=== PATIENT | female | born 1950 | race Caucasian/White ===

== ENCOUNTER 2018-03-19 00:16 | Inpatient (IN) | payer OTHER ==
[2018-03-19] MEDS ORDERED: NS 0.9% 1000 ML** 1,000 ML IV.FLUID IV ONE (00:39)
[2018-03-19] MEDS ORDERED: Ibuprofen TAB* 400 MG PO ONE (00:42)
[2018-03-19] MEDS ORDERED: Acetaminophen TAB* 325 MG PO ONE (00:42)
[2018-03-19 01:01] LABS: ABS Basophils 0 10^3/ul (0-0.2); ABS Eosinophils 0 10^3/ul (0-0.6); ABS Lymphocytes 0.5 10^3/ul (1.0-4.8); ABS Monocytes 0.1 10^3/ul (0-0.8); ABS Neutrophils 4.6 10^3/ul (1.5-7.7); ABS Nucleated RBC 0 10^3/ul; Eosinophil % 0 %; Hematocrit 40 % (35-47); Hemoglobin 13.1 g/dl (12.0-16.0); Mean Corpuscular HGB Conc 33 g/dl (31-36); Mean Corpuscular Hemoglobin 29 pg (27-31); Mean Corpuscular Volume 87 fL (80-97); Mean Platelet Volume 8.7 fL (7.4-10.4); Nucleated Red Blood Cells % 0; Platelet Count 146 10^3/ul (150-450); Red Blood Count 4.54 10^6/ul (4.00-5.40); Red Cell Distribution Width 14 % (10.5-15); White Blood Count 5.2 10^3/ul (3.5-10.8)
--- NOTE | 2018-03-19 01:06 | ED ---
HPI Febrile Illness - HPI Summary HPI Summary: This pt is a 67 y/o female, accompanied by her PCP, presenting to [facility] via EMS c/o fever and myalgia since 6 days ago. Pt states that she vacationed for approximately 30 days in [place] and [place]. Pt notes that she started to have chills 6 days ago. 5 days ago pt took Tamiflu, prescribed by her PCP, without relief. PCP states pt was not positive for the flu and was being treated for her symptoms. Today, pt was shivering and decided to come to the ED. Per PCP, pt usually runs a fever during the night. Additionally pt notes myalgia. Denies nausea, vomiting, diarrhea, neck pain, abd pain, chest pain, SOB. No PMHx. - History of Current Complaint Hx Obtained From: Patient, Family/Patient Carrier - PCP Onset/Duration: Started Days Ago, Still Present Timing: Lasting Days Current Severity: Moderate Pain Intensity: 8 Pain Scale Used: 0-10 Numeric Aggravating Factors: Nothing Alleviating Factors: Nothing Associated Signs and Symptoms: Chills, Myalgia, Other: - NEG: nausea, vomiting, diarrhea, neck pain, abd pain, chest pain, SOB Related History: Exposure to: - recent return from [facility] on 02/28/18 - Allergy/Home Medications Allergies/Adverse Reactions: Allergies Allergy/AdvReac Type Severity Reaction Status Date / Time No Known Allergies Allergy Verified 03/19/18 00:47 Home Medications: Home Medications NK [No Home Medications Reported] 03/19/18 [History Confirmed 03/19/18] PMH/Surg Hx/FS Hx/Imm Hx Endocrine/Hematology History: Denies: Hx Diabetes Cardiovascular History: Denies: Hx Hypertension Infectious Disease History: No Infectious Disease History: Reports: Traveled Outside the [place] in Last 30 Days - [facility] - Family History Known Family History: Negative: Cardiac Disease - Social History Alcohol Use: None Substance Use Type: Reports: None Smoking Status (MU): Never Smoked Tobacco Review of Systems Positive: Fever, Chills Negative: Chest Pain Negative: Shortness Of Breath Negative: Abdominal Pain, Vomiting, Diarrhea, Nausea Positive: Myalgia. Negative: Other - NEG: neck pain All Other Systems Reviewed And Are Negative: Yes Physical Exam - Summary Physical Exam Summary: VITAL SIGNS: Reviewed. GENERAL: Patient is a well-developed and nourished female who is lying comfortable in the stretcher. Patient is not in any acute respiratory distress. HEAD AND FACE: No signs of trauma. No ecchymosis, hematomas or skull depressions. No sinus tenderness. EYES: PERRLA, EOMI x 2, No injected conjunctiva, no nystagmus. EARS: Hearing grossly intact. Ear canals and tympanic membranes are within normal limits. MOUTH: Oropharynx within normal limits. NECK: Supple, trachea is midline, no adenopathy, no JVD, no carotid bruit, no c- spine tenderness, neck with full ROM. CHEST: Symmetric, no tenderness at palpation LUNGS: Clear to auscultation bilaterally. No wheezing or crackles. CVS: Tachycardic rate and regular rhythm, S1 and S2 present, no murmurs or gallops appreciated. ABDOMEN: Soft, non-tender. No signs of distention. No rebound no guarding, and no masses palpated. Bowel sounds are normal. EXTREMITIES: FROM in all major joints, no edema, no cyanosis or clubbing. NEURO: Alert and oriented x 3. No acute neurological deficits. Speech is normal and follows commands. SKIN: Dry and warm Triage Information Reviewed: Yes Vital Signs On Initial Exam: Initial Vitals Pulse Pulse Ox 108 96 03/19/18 00:20 03/19/18 00:20 Vital Signs Reviewed: Yes Procedures - Procedure Summary Procedure Summary: Central Line Repositioned Procedure Note: Central line was repositioned. It was resutured Repeat chest XR shows the tip of the cental line is straight in the distal superior vena cava. - Central Line Right Jugular Central Line Lumen: triple Central Line Procedure: betadine prep, sterile drapes applied, sterile dressing applied Central Line Position: internal jugular (R) Anesthesia: Lidocaine Complications: none Central Line Post Position: sutured, good blood return, position confirmed w/ CXR Diagnostics - Vital Signs Vital Signs Temp Pulse Resp BP Pulse Ox 03/19/18 00:51 22 120/63 03/19/18 00:40 94 03/19/18 00:39 105.4 F 106 16 151/80 95 03/19/18 00:33 106 27 151/80 96 03/19/18 00:21 113 127/82 97 03/19/18 00:20 108 96 - Laboratory Result Diagrams: 03/19/18 00:48 03/19/18 00:48 Lab Statement: Any lab studies that have been ordered have been reviewed, and results considered in the medical decision making process. - Radiology Chest XR Radiology Interpretation Completed By: ED Physician Summary of Radiographic Findings: negative XR. Pending official radiology report. Chest XR post cental line placement Radiology Interpretation Completed By: ED Physician Summary of Radiographic Findings: The tip of the central line lumen makes transversed turn in the mid superior vena cava. Pending official radiology report. Chest XR after reposition Radiology Interpretation Completed By: ED Physician Summary of Radiographic Findings: Tip of central line is straight in the distal superior vena cava. Pending official radiology report. - CT Chest CT CT Interpretation Completed By: Radiologist Summary of CT Findings: IMPRESSION: 1. Subsegmental atelectasis, fibrosis, or minimal infiltrate in the right middle lobe. 2. Bibasilar linear atelectasis or fibrosis. Dr. Muller has reviewed this report. Abdomen/Pelvis CT CT Interpretation Completed By: Radiologist Summary of CT Findings: IMPRESSION: 1. Periportal edema. 2. Left renal cysts. 3. Low-density structure in the upper pole of the left kidney, more likely representing cyst but renal ultrasound is recommended for confirmation. 4. Fibroid uterus. 5. Borderline dilatation of the cecum. 6. Changes involving the spine, as described above. 7. Distended into vena cava, raising the posibility of decreased cardiac function. Dr. Muller has reviewed this report. - EKG 04:36 Cardiac Rate: NL - at 79 bpm EKG Rhythm: Sinus Rhythm Summary of EKG Findings: Normal axis. Normal interval. No ischemic changes Re-Evaluation - Re-Evaluation First Eval Re-Evaluation Time: 04:10 Comment: Central line was placed. Course/Dx - Course Assessment/Plan: Pt is a 67 y/o female, accompanied by her PCP, who presents to the ED for fever and myalgia since 6 days ago. Pt states that she vacationed for approximately 30 days in [place] and [place]. Pt notes that she started to have chills 6 days ago. 5 days ago pt took Tamiflu, prescribed by her PCP, without relief. PCP states pt was not positive for the flu and was being treated for her symptoms. Today, pt was shivering and decided to come to the ED. Blood work, urinalysis, influenza, rapid strep, and CT were obtained. Influenza A and B are both negative. Rapid strep is negative. Pt became hypotensive despite 3 liters of normal saline. Pt was in septic shock and pt consented to get pressors. We placed a central line in the right IJ. Please see procedure note. Norepinephrine was started. Chest XR post central line placement shows the tip of the central line lumen makes transversed turn in the mid superior vena cava. Central line was repositioned, please see procedure note. Repeat chest XR shows the tip of central line is straight in the distal superior vena cava. Pt was given broad spectrum antibiotic, Vancomycin. An abdomen/pelvis/chest CT was obtained, please refer to the report. I discussed pt care with Dr. Santos, hospitalist, who accepted the pt for admission. - Diagnoses Provider Diagnoses: Septic shock, UTI (urinary tract infection) - Provider Notifications Discussed Care Of Patient With: Whitney Santos - hospitalist Time Discussed With Above Provider: 03:03 Instructed by Provider To: Admit As Inpatient - Critical Care Time Critical Care Time: 30-74 min - 70 minutes Discharge - Sign-Out/Discharge Documenting (check all that apply): Patient [place]art[place] [facility] [place] Received Moderate/Deep Sedation with Procedure: No - Discharge Plan Condition: Stable Disposition: ADMITTED TO [facility] Referrals: Carol Salinas MD [Primary Care Provider] - - Attestation Statements Document Initiated by Scribe: Yes Documenting Scribe: Diana Rankin Provider For Whom Scribe is Documenting (Include Credential): Luz Muller MD Scribe Attestation: IDiana, scribed for Luz Muller MD on 03/19/18 at 0459. Status of Scribe Document: Ready
[2018-03-19 01:16] LABS: Activated Partial Thrombo Time 21.1 seconds (26.0-36.3); INR 1.14 (0.77-1.02)
[2018-03-19 01:17] LABS: Influenza A Molecular NEGATIVE (Negative); Influenza B Molecular NEGATIVE (Negative)
[2018-03-19 01:18] LABS: Albumin 3.9 g/dL (3.2-5.2); Albumin/Globulin Ratio 1.1 (1-3); BUN/Creatinine Ratio 17.1 (8-20); C Reactive Protein 95.39 mg/L (<8.01); Calcium 9.5 mg/dL (8.6-10.3); EGFR African American 63.6 (>60); EGFR Non-African American 52.6 (>60); Globulin 3.4 g/dL (2-4); Potassium 4.4 mmol/L (3.5-5.0); Total Bilirubin 0.5 mg/dL (0.2-1.0); Total Protein 7.3 g/dL (6.4-8.9)
[2018-03-19 01:42] LABS: Urine Appearance Cloudy; Urine Bacteria 1+ (Absent); Urine Bilirubin Negative (Negative); Urine Blood 3+ (Negative); Urine Color Yellow; Urine Glucose Negative (Negative); Urine Ketones Negative (Negative); Urine Nitrite Positive (Negative); Urine Protein 1+(30 mg/dL) (Negative); Urine Red Blood Cell 3+(>10/hpf) (Absent); Urine Specific Gravity 1.012 (1.010-1.030); Urine Squamous Epithelial Cell Present (Absent); Urine Urobilinogen Negative (Negative); Urine White Blood Cell 3+(>20/hpf) (Absent)
[2018-03-19] MEDS ORDERED: Levofloxacin 500 MG IVPREMIX(* 500 MG/100 ML BAG IVPB ONE (01:45)
[2018-03-19] MEDS: NS 0.9% 1000 ML** 1,000 ML IV ONE ×2 (02:39→03:10)
[2018-03-19] MEDS ORDERED: NS 0.9% 1000 ML** 1,000 ML IV ONE ×2 (02:39→03:09)
[2018-03-19] MEDS ORDERED: Vancomycin(*) 1,000 MG in NS 0.9% 250 ML* 250 ML IVPB ONE (03:07)
[2018-03-19] MEDS ORDERED: Iodixanol* (CONTRAST) 320 MG/ML 100 ML SDV IV ONE (03:39)
[2018-03-19] MEDS ORDERED: EPINEPHrine SYR 0.1MG/ML* SYRINGE ONE (03:58)
[2018-03-19] MEDS ORDERED: Al Hydrox/Mg Hydrox/Simet LIQ* 30 ML UDC PO PRN (04:00)
[2018-03-19] MEDS ORDERED: Ondansetron INJ* 2 MG/ML VIAL IV PRN (04:00)
[2018-03-19] MEDS ORDERED: Norepinephrine 16MCG/ML IVPRE* 4,000 MCG/250 ML BAG IV SCH ×2 (04:00→05:00)
[2018-03-19] MEDS ORDERED: NS 0.9% 1000 ML** 1,000 ML IV SCH ×2 (04:00→11:16)
[2018-03-19] MEDS: Norepinephrine VIAL* 4 MG in NS 0.9% 250 ML* 246 ML IV SCH ×5 (04:18→17:52)
[2018-03-19] MEDS ORDERED: Hydrocortisone INJ* 100 MG VIAL IV ONE (05:11)
[2018-03-19 05:18] LABS: ABS Basophils 0 10^3/ul (0-0.2); ABS Eosinophils 0 10^3/ul (0-0.6); ABS Lymphocytes 0.4 10^3/ul (1.0-4.8); ABS Monocytes 0.3 10^3/ul (0-0.8); ABS Neutrophils 7.8 10^3/ul (1.5-7.7); ABS Nucleated RBC 0 10^3/ul; Eosinophil % 0 %; Hematocrit 33 % (35-47); Hemoglobin 10.8 g/dl (12.0-16.0); Lymphocyte % 4.3 %; Mean Corpuscular HGB Conc 33 g/dl (31-36); Mean Corpuscular Hemoglobin 29 pg (27-31); Mean Corpuscular Volume 87 fL (80-97); Mean Platelet Volume 8.7 fL (7.4-10.4); Nucleated Red Blood Cells % 0.1; Platelet Count 127 10^3/ul (150-450); Red Blood Count 3.78 10^6/ul (4.00-5.40); Red Cell Distribution Width 14 % (10.5-15); White Blood Count 8.5 10^3/ul (3.5-10.8)
[2018-03-19 05:36] LABS: BUN/Creatinine Ratio 17.5 (8-20); Calcium 7.3 mg/dL (8.6-10.3); EGFR African American 65.1 (>60); EGFR Non-African American 53.8 (>60)
[2018-03-19] MEDS: Heparin VIAL(*) 5000 UNITS/ML VIAL (FIVE THOUSAND) SUBCUT SCH ×3 (07:44→20:57)
[2018-03-19] MEDS: Acetaminophen TAB* 325 MG PO PRN (07:44)
--- NOTE | 2018-03-19 08:45 | HP ---
CC: Dr. Salinas * HISTORY AND PHYSICAL: DATE OF ADMISSION: 03/19/18 TIME OF EVALUATION: 0400 PRIMARY CARE PHYSICIAN: Dr. Salinas. CHIEF COMPLAINT: Fever. HISTORY OF PRESENT ILLNESS: This is a 67-year-old female with an unremarkable past medical history, who presents to the emergency room with persistent fevers , rigors, and altered mental status. The patient stated she developed a temperature on 03/13/18. T-max of 102. She continued to have fevers daily. She was started on Tamiflu empirically by her primary care physician on 03/14/18. The patient continued to have fevers despite this. She did not have any respiratory symptoms. No cough or congestion. She had no shortness of breath, no chest pain. No nausea, vomiting, or diarrhea. No abdominal pain. Up until today, she did complain of some lower abdominal discomfort. No neck pain, no headache, no rash, no dysuria, no urinary frequency. She was in [facility] and returned on 02/28/18. She did not go swimming. She denied any tick exposure here. She says there was a lot of mosquito bites but no known bites that she had herself. In the emergency room, the patient had labs, imaging. Her urine showed pyuria. She was going to get levofloxacin and be discharged home when her blood pressure plummeted down to the 70s and 60s. She was given 4 L of fluid and she remained hypotensive despite mentating and relatively asymptomatic. She had a central line placed and started on Levophed and admitted to the hospitalist service for further evaluation to the intensive care unit. The patient's urine is dark with gross hematuria. She denies having had any issues with this at home prior to arrival. Otherwise, remaining review of systems is negative. In the emergency room, as mentioned, the patient was started on 4 L of fluid, started on Levophed , given levofloxacin, ibuprofen, Tylenol, and referred to the hospitalist service. PAST MEDICAL HISTORY: Unremarkable. PAST SURGICAL HISTORY: History of T and A. MEDICATIONS: The patient is on Tamiflu 75 mg p.o. b.i.d., had 1 tab left. ALLERGIES: No known drug allergies. FAMILY HISTORY: Both parents are alive and healthy. SOCIAL HISTORY: The patient lives at home with her who is her healthcare proxy. No smoking or illicit drug use. She is a social drinker. As mentioned, she just traveled from [facility], returned on 02/28/18. 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 Code status is full code. REVIEW OF SYSTEMS: A 14-point review of systems as mentioned in the HPI, otherwise negative. PHYSICAL EXAMINATION GENERAL: Pale, diaphoretic, in no acute distress. Her primary Dr. Salinas, who is her friend, is at the bedside. VITAL SIGNS: T-max 105.4, pulse rate 79, respiratory rate 25, oxygen saturation 95% on room air, and blood pressure 73/48. HEENT: Head: Normocephalic. Pupils equal and reactive. Oropharynx: Mucous membranes moist. NECK: No adenopathy. No nuchal rigidity. RESPIRATORY: Diminished breath sounds. No wheezes, rhonchi, or rales. CARDIAC: Regular rate and rhythm. Soft systolic murmur heard throughout. ABDOMEN: Positive bowel sounds, soft, some mild diffuse tenderness. No rebound or guarding. EXTREMITIES: No clubbing, cyanosis, or edema. +1 DP. NEUROLOGIC: Alert and oriented x3. No gross focal neurologic deficits. LABORATORY DATA: White count 5.2, hemoglobin 13.1, hematocrit 40, platelets 146. INR was 1.14. Sodium 131, potassium 4.4, chloride 95, bicarb 28, BUN 18, creatinine 1.05, glucose 131. CRP is 95. Urine shows positive nitrite, positive blood, positive leukocytes, presence of squamous cells, +1 bacteria. Fluids negative. Rapid strep is negative. RADIOGRAPHIC DATA: Chest CT, abdomen and pelvis; Subsegmental atelectasis, fibrosis. No infiltrate in the right middle lobe, basilar linear atelectasis or fibrosis. Periportal edema, left renal cyst, low density structure in the upper pole of the left kidney more likely representing a cyst, but renal ultrasound recommended for confirmation. Fibroid uterus. Borderline dilatation of the cecum. inferior vena cava raising the possibility of decreased cardiac function. Chest x-ray, no acute findings. EKG shows normal sinus rhythm. ASSESSMENT: This is a 67-year-old female with an unremarkable past medical history, who presents with persistent fevers for the past 6 days with rigors and some altered mental status, now hypotensive. 1. Fever and hypotension. Assessment: The patient's findings are consistent with urinary tract infection. No findings of ureteral stone to complicate her clinical picture or contribute to her hypotension. It is unclear why she has such profound hypotension, possibly some adrenal insufficiency component. Plan: We will admit her to the ICU on Levophed. Continue her on IV fluids. We will switch over to ceftriaxone. Follow up blood cultures, urine cultures. We will repeat her labs to get serum cortisol level and sign her out to the life skills coordinator. 2. FEN: We will allow for regular diet, IV fluids. 3. DVT prophylaxis: The patient scores moderate risk. We will place her on heparin subcu t.i.d. 4. Code status: Full code. PATIENT TIME: Greater than 50 minutes spent doing the history and physical, more than half the time spent in direct patient contact. [id number]/CPS #: [id number] [place]
[2018-03-19] MEDS: cefTRIAXone(*) 1 GM in NS 0.9% 50 ML* 50 ML IVPB SCH (09:08)
[2018-03-19] MEDS ORDERED: Potassium Chlor TAB* 20 MEQ TAB.ER PO ONE (09:24)
[2018-03-19] MEDS: KCL 20 MEQ/100 ML IVPREMIX* 20 MEQ/100 ML BAG IV SCH ×2 (09:42→12:00)
[2018-03-19] MEDS ORDERED: Calcium Carbonate CHEW TAB* 500 MG (TUMS) PO PRN (11:08)
[2018-03-19] MEDS ORDERED: KCL 20 MEQ/100 ML IVPREMIX* 20 MEQ/100 ML BAG IV ONE (11:15)
--- NOTE | 2018-03-19 11:23 | CONSULT ---
Consult Consult: Consultation Note -- Critical Care Requesting Physician:Dr Whitney Santos Reason for consult: shock, UTI Limitations in history/physical: none Date of consult: 03/19/2018 HPI: 67y F with no sig pmhx; recent trip to [facility] and returned 2 weeks back. COmes to ER for eval of fever. Fever started 1 week prior, no URI symptoms , no sob/cough/cp, no abd pain/n/v, no back pain. Some dec appetite+. WEnt to PCP and started on tamiflu for possible influenza. COmpelted course but no improvement, still having fevers at home. Comes to ER, febrile 105, tachycardic , normotensive but then became hypotensive to 60s. Started on IV abx, sepsis protocol and IV pressors for hypotension. Currently in bed, no distress. wants baer out. denies any complaints at this time. feels okay. mild headache only. ED/floor Course: as above ROS: negative except for pertinent positives mentioned above. 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 Allergies: Allergies Allergy/AdvReac Type Severity Reaction Status Date / Time No Known Allergies Allergy Verified 03/19/18 00:47 Home Medications: NK [No Home Medications Reported] 03/19/18 [History Confirmed 03/19/18] Tele: NSR Vitals: Vital Signs Temp 98.6 F 03/19/18 11:00 Pulse 66 03/19/18 11:00 Resp 21 03/19/18 11:00 BP 90/63 03/19/18 11:00 Pulse Ox 96 03/19/18 11:00 Intake & Output 03/18/18 03/19/18 03/19/18 18:59 06:59 18:59 Intake Total 4350 600 Output Total 605 Balance 4350 -5 Weight 65.7 kg 65.7 kg Intake: IV Fluids 4350 Oral 600 Output: Baer 605 O2/Vent: RA Infusions: levophed 10, NS 100cc/hr Current Medications: Acetaminophen (Tylenol Tab*) 650 mg PO Q4H PRN PRN Reason: FEVER/PAIN Last Admin: 03/19/18 07:44 Dose: 650 mg Al Hydrox/Mg Hydrox/Simethicone (Maalox Plus*) 30 ml PO Q6H PRN PRN Reason: INDIGESTION Calcium Carbonate (Tums*) 500 mg PO Q4H PRN PRN Reason: DYSPEPSIA Famotidine (Pepcid Tab*) 20 mg PO BID [facility] Heparin Sodium (Porcine) (Heparin Vial(*)) 5,000 units SUBCUT Q8HR [facility] Last Admin: 03/19/18 07:44 Dose: 5,000 units Sodium Chloride (Ns 0.9% 1000 Ml) 1,000 mls @ 125 mls/hr IV PER RATE [facility] Last Admin: 03/19/18 05:34 Dose: 125 mls/hr Ceftriaxone Sodium 1 gm/ (Sodium Chloride) 50 mls @ 200 mls/hr IVPB Q24H [facility] Last Admin: 03/19/18 09:08 Dose: 200 mls/hr Potassium Chloride (Potassium Chloride 20 Meq/100 Ml Ivpremix*) 20 meq in 100 mls @ 50 mls/hr IV Q2H [facility] Stop: 03/19/18 13:59 Last Admin: 03/19/18 09:42 Dose: 50 mls/hr Norepinephrine Bitartrate 4 mg (/ Sodium Chloride) 250 mls @ 56.25 mls/hr IV Q4H [facility]; Protocol Last Admin: 03/19/18 09:55 Dose: 56.3 mls/hr Potassium Chloride (Potassium Chloride 20 Meq/100 Ml Ivpremix*) 20 meq in 100 mls @ 50 mls/hr IV ONCE ONE Stop: 03/19/18 13:14 Ondansetron HCl (Zofran Inj*) 4 mg IV Q4H PRN PRN Reason: NAUSEA/VOMITING Physical Exam: General: awake, alert, no distress, no diaphoresis Head: normocephalic, atraumatic HEENT: no pallor, no icterus, moist mucous membranes Neck: soft, supple CVS: normal rate, regular, no murmur Resp: bilateral air entry, no rhales, no wheeze, no rhonchi, no acc muscle use Abdomen: soft, nontender, nondistended, bowel sounds + Ext: pulses+, warm, no edema Skin: intact Neuro: awake, alert, orientedx3, moving all extremities, no gross focal deficit Labs: Laboratory Results - last 24 hr 03/19/18 03/19/18 03/19/18 00:48 00:48 00:48 WBC 5.2 RBC 4.54 Hgb 13.1 Hct 40 MCV 87 MCH 29 MCHC 33 RDW 14 Plt Count 146 L MPV 8.7 Neut % (Auto) 88.7 Lymph % (Auto) 10.0 [place] % (Auto) 1.2 Eos % (Auto) 0 Baso % (Auto) 0.1 Absolute Neuts (auto) 4.6 Absolute Lymphs (auto) 0.5 L Absolute Monos (auto) 0.1 Absolute Eos (auto) 0 Absolute Basos (auto) 0 Absolute Nucleated RBC 0 Nucleated RBC % 0 INR (Anticoag Therapy) 1.14 H APTT 21.1 L Sodium 131 L Potassium 4.4 Chloride 95 L Carbon Dioxide 28 Anion Gap 8 BUN 18 Creatinine 1.05 H Est GFR ( Amer) 63.6 Est GFR (Non-Af Amer) 52.6 BUN/Creatinine Ratio 17.1 Glucose 131 H Lactic Acid Calcium 9.5 Total Bilirubin 0.50 AST 18 ALT 15 Alkaline Phosphatase 43 Troponin I Cancelled C-Reactive Protein 95.39 H Total Protein 7.3 Albumin 3.9 Globulin 3.4 Albumin/Globulin Ratio 1.1 Amylase 30 Lipase 13 Cortisol Urine Color Urine Appearance Urine pH Ur Specific [place] Urine Protein Urine Ketones Urine Blood Urine Nitrate Urine Bilirubin Urine Urobilinogen Ur Leukocyte Esterase Urine WBC (Auto) Urine RBC (Auto) Ur Squamous Epith Cells Urine Bacteria Urine Glucose Influenza A (Rapid) Influenza B (Rapid) Group A Strep Rapid 03/19/18 03/19/18 03/19/18 00:48 01:04 01:06 WBC RBC Hgb Hct MCV MCH MCHC RDW Plt Count MPV Neut % (Auto) Lymph % (Auto) [place] % (Auto) Eos % (Auto) Baso % (Auto) Absolute Neuts (auto) Absolute Lymphs (auto) Absolute Monos (auto) Absolute Eos (auto) Absolute Basos (auto) Absolute Nucleated RBC Nucleated RBC % INR (Anticoag Therapy) APTT Sodium Potassium Chloride Carbon Dioxide Anion Gap BUN Creatinine Est GFR ( Amer) Est GFR (Non-Af Amer) BUN/Creatinine Ratio Glucose Lactic Acid 1.8 Calcium Total Bilirubin AST ALT Alkaline Phosphatase Troponin I C-Reactive Protein Total Protein Albumin Globulin Albumin/Globulin Ratio Amylase Lipase Cortisol Urine Color Urine Appearance Urine pH Ur Specific [place] Urine Protein Urine Ketones Urine Blood Urine Nitrate Urine Bilirubin Urine Urobilinogen Ur Leukocyte Esterase Urine WBC (Auto) Urine RBC (Auto) Ur Squamous Epith Cells Urine Bacteria Urine Glucose Influenza A (Rapid) Negative Influenza B (Rapid) Negative Group A Strep Rapid Negative 03/19/18 03/19/18 03/19/18 01:28 04:55 04:55 WBC 8.5 RBC 3.78 L Hgb 10.8 L Hct 33 L MCV 87 MCH 29 MCHC 33 RDW 14 Plt Count 127 L MPV 8.7 Neut % (Auto) 92.0 Lymph % (Auto) 4.3 [place] % (Auto) 3.4 Eos % (Auto) 0 Baso % (Auto) 0.3 Absolute Neuts (auto) 7.8 H Absolute Lymphs (auto) 0.4 L Absolute Monos (auto) 0.3 Absolute Eos (auto) 0 Absolute Basos (auto) 0 Absolute Nucleated RBC 0 Nucleated RBC % 0.1 INR (Anticoag Therapy) APTT Sodium 133 L Potassium 3.0 L Chloride 103 Carbon Dioxide 19 L Anion Gap 11 BUN 18 Creatinine 1.03 H Est GFR ( Amer) 65.1 Est GFR (Non-Af Amer) 53.8 BUN/Creatinine Ratio 17.5 Glucose 130 H Lactic Acid Calcium 7.3 L Total Bilirubin AST ALT Alkaline Phosphatase Troponin I C-Reactive Protein Total Protein Albumin Globulin Albumin/Globulin Ratio Amylase Lipase Cortisol 48.40 Urine Color Yellow Urine Appearance Cloudy Urine pH 6.0 Ur Specific [place] 1.012 Urine Protein 1+(30 mg/dl) A Urine Ketones Negative Urine Blood 3+ A Urine Nitrate Positive A Urine Bilirubin Negative Urine Urobilinogen Negative Ur Leukocyte Esterase 2+ A Urine WBC (Auto) 3+(>20/hpf) A Urine RBC (Auto) 3+(>10/hpf) A Ur Squamous Epith Cells Present A Urine Bacteria 1+ A Urine Glucose Negative Influenza A (Rapid) Influenza B (Rapid) Group A Strep Rapid Imaging: cxr 2/5 - no infiltrate CT chest 25 - segmental atelectasis; periportal edema+, upper left kidney small cyst; reviewed report Assessment: 67y F with no sig pmhx; recent trip to [facility] and returned 2 weeks back. COmes to ER for eval of fever. Fever started 1 week prior, no URI symptoms, no sob/cough/cp, no abd pain/n/v, no back pain. Some dec appetite+. WEnt to PCP and started on tamiflu for possible influenza. COmpelted course but no improvement, still having fevers at home. Comes to ER, febrile 105, tachycardic, normotensive but then became hypotensive to 60s. Started on IV abx , sepsis protocol and IV pressors for hypotension. -Severe Sepsis with Shock -Gram negative bacteremia -UTI suspected Plan: Neuro- stable, delirium prec. CVS- shock, suspected sepsis, Urinary source+, bacteremia+. IV abx. cont levophed, wean to maintain MAP 65. Cont NS, dec to 100cc/hr. Resp- RA, no distress ID- tmax 105, now afebrile. Urinalysis with LE/Bacteria+/nitrate+, WBC+. CT chest noted. CT abd no occult abnormality, noted some cecal dilation. CXR clear. Blood cx with gram neg bacilli growth+. Cont Ceftriaxone IV (day#1). GI- regular diet. GI proph. Renal- Cr okay. Hypokalemia, replete IV and PO. Mild acidosis. Cont NS 100cc/ hr. Baer in place, was darker urine but control officer now. May eval for possible baer removal later today Heme- hg drop, may be from IVF bolus. no bleeding. plt okay. Monitoring. Endo- fingerstick prn Musculsk- pressure ulcer prophylaxis. Bedrest. Wounds- none Nutrition- reg diet DVT prophylaxis: heparin sq GI prophylaxis: h2b Central Line: right ij 2/5 Arterial Line: no Baer Cathetor: yes Disposition: Patient requires Critical Care/ICU for shock and bacteremia Patient Clinical Status: stable Code Status: full code Total Critical Care time is 45 minutes, excluding procedures/teaching Miguel A Seymour MD [place] Wheeler (Electronically Signed)
[2018-03-19] MEDS ORDERED: Hydrocortisone INJ* 100 MG VIAL IV SCH (13:00)
[2018-03-19] MEDS: Famotidine TAB* 20 MG PO SCH (20:57)
[2018-03-20] MEDS: Norepinephrine VIAL* 4 MG in NS 0.9% 250 ML* 246 ML IV SCH ×6 (00:01→17:05)
[2018-03-20] MEDS: Acetaminophen TAB* 325 MG PO PRN ×4 (01:08→20:18)
[2018-03-20] MEDS: Heparin VIAL(*) 5000 UNITS/ML VIAL (FIVE THOUSAND) SUBCUT SCH ×3 (05:07→23:41)
[2018-03-20 05:45] LABS: Hematocrit 33 % (35-47); Hemoglobin 10.7 g/dl (12.0-16.0); Mean Corpuscular HGB Conc 33 g/dl (31-36); Mean Corpuscular Hemoglobin 28 pg (27-31); Mean Corpuscular Volume 87 fL (80-97); Mean Platelet Volume 9.1 fL (7.4-10.4); Platelet Count 153 10^3/ul (150-450); Red Blood Count 3.78 10^6/ul (4.00-5.40); Red Cell Distribution Width 15 % (10.5-15); White Blood Count 13.7 10^3/ul (3.5-10.8)
[2018-03-20 06:03] LABS: Calcium 8.3 mg/dL (8.6-10.3); EGFR African American 93.8 (>60); EGFR Non-African American 77.6 (>60); Potassium 4.3 mmol/L (3.5-5.0)
[2018-03-20] MEDS: cefTRIAXone(*) 1 GM in NS 0.9% 50 ML* 50 ML IVPB SCH (07:48)
[2018-03-20] MEDS: Famotidine TAB* 20 MG PO SCH ×2 (07:49→23:42)
[2018-03-20] MEDS ORDERED: Ibuprofen TAB* 400 MG PO ONE ×2 (09:00→21:34)
[2018-03-20] MEDS ORDERED: NS 0.9% 1000 ML** 1,000 ML IV SCH (11:01)
--- NOTE | 2018-03-20 11:07 | PN ---
Progress Note - Progress Note Date of Service: 03/20/18 Note: Consultation Note -- Critical Care 24 hour events -no events overnight -weaned off levophed this mmorning -making urine, dirty still -no complaints, wants baer out Tele: NSR Vitals: Vital Signs Temp 99.1 F 03/20/18 10:15 Pulse 70 03/20/18 10:15 Resp 31 03/20/18 10:15 BP 89/57 03/20/18 10:15 Pulse Ox 92 03/20/18 10:15 Intake & Output 03/19/18 03/20/18 03/20/18 18:59 06:59 18:59 Intake Total 1859 2774 Output Total 1920 1025 60 Balance -61 1749 -60 Weight 65.7 kg 67 kg Intake: IV Fluids 550 1016 NS (0.9%) 550 1016 IVPB 150 672 ABX - CEFTRIAXONE 50 NS (0.9%) 100 672 Medicated IV 559 236 norepinephrine 559 236 Oral 600 850 Output: Baer 1920 1025 60 O2/Vent: RA Infusions: levophed off, NS 75 cc/hr Current Medications: Acetaminophen (Tylenol Tab*) 650 mg PO Q4H PRN PRN Reason: FEVER/PAIN Last Admin: 03/20/18 05:07 Dose: 650 mg Al Hydrox/Mg Hydrox/Simethicone (Maalox Plus*) 30 ml PO Q6H PRN PRN Reason: INDIGESTION Calcium Carbonate (Tums*) 500 mg PO Q4H PRN PRN Reason: DYSPEPSIA Last Admin: 03/19/18 11:20 Dose: 500 mg Famotidine (Pepcid Tab*) 20 mg PO BID [facility] Last Admin: 03/20/18 07:49 Dose: 20 mg Heparin Sodium (Porcine) (Heparin Vial(*)) 5,000 units SUBCUT Q8HR [facility] Last Admin: 03/20/18 05:07 Dose: 5,000 units Ceftriaxone Sodium 1 gm/ (Sodium Chloride) 50 mls @ 200 mls/hr IVPB Q24H [facility] Last Admin: 03/20/18 07:48 Dose: 200 mls/hr Norepinephrine Bitartrate 4 mg (/ Sodium Chloride) 250 mls @ 56.25 mls/hr IV Q4H [facility]; Protocol Stop: 03/20/18 23:59 Last Admin: 03/20/18 09:36 Dose: Not Given Sodium Chloride (Ns 0.9% 1000 Ml) 1,000 mls @ 100 mls/hr IV PER RATE [facility] Last Admin: 03/20/18 07:51 Dose: 100 mls/hr Norepinephrine Bitartrate 4 mg (/ Sodium Chloride) 250 mls @ 56.25 mls/hr IV Q24H [facility]; Protocol Ondansetron HCl (Zofran Inj*) 4 mg IV Q4H PRN PRN Reason: NAUSEA/VOMITING Physical Exam: General: awake, alert, no distress, no diaphoresis Head: normocephalic, atraumatic HEENT: no pallor, no icterus, moist mucous membranes Neck: soft, supple CVS: normal rate, regular, no murmur Resp: bilateral air entry, no rhales, no wheeze, no rhonchi, no acc muscle use Abdomen: soft, nontender, nondistended, bowel sounds + Ext: pulses+, warm, no edema Skin: intact Neuro: awake, alert, orientedx3, moving all extremities, no gross focal deficit Labs: Laboratory Results - last 24 hr 03/20/18 03/20/18 05:26 05:26 WBC 13.7 H RBC 3.78 L Hgb 10.7 L Hct 33 L MCV 87 MCH 28 MCHC 33 RDW 15 Plt Count 153 MPV 9.1 Sodium 138 Potassium 4.3 Chloride 112 H Carbon Dioxide 21 L Anion Gap 5 BUN 15 Creatinine 0.75 Est GFR ( Amer) 93.8 Est GFR (Non-Af Amer) 77.6 BUN/Creatinine Ratio 20.0 Glucose 117 H Calcium 8.3 L Imaging: cxr 2/5 - no infiltrate CT chest 2/5 - segmental atelectasis; periportal edema+, upper left kidney small cyst; reviewed report Us abd 2/5 - no obstruction/hydro noted Assessment: 67y F with no sig pmhx; recent trip to [place] and returned 2 weeks back. COmes to ER for eval of fever. Fever started 1 week prior, no URI symptoms, no sob/cough/cp, no abd pain/n/v, no back pain. Some dec appetite+. WEnt to PCP and started on tamiflu for possible influenza. COmpelted course but no improvement, still having fevers at home. Comes to ER, febrile 105, tachycardic, normotensive but then became hypotensive to 60s. Started on IV abx , sepsis protocol and IV pressors for hypotension. -Severe Sepsis with Shock -E.Coli bacteremia -UTI suspected -BEULAH Plan: Neuro- stable, delirium prec. CVS- septic shock; weaned off levophed. warm ext. making urine. dec NS to 75cc/ hr. cont IV abx. Maintain MAP 65. Resp- RA, no distress ID- tmax 99.1. WBC 13. Urinalysis with LE/Bacteria+/nitrate+, WBC+. Urine culture not in lab, send now. Blood Cx x2 with E.coli, pending sensitivity. -CT chest noted. CT abd no occult abnormality, noted some cecal dilation. -now off pressors, seems to be improved -Cont Ceftriaxone IV (day#2). GI- regular diet. GI proph. Renal- Cr okay. K okay. Mild acidosis. Good urine output. Dec NS 75cc/hr. Possible d/c of baer later today. Heme- hg 10s, stable. like concentrated before. Plt okay. Endo- fingerstick prn Musculsk- pressure ulcer prophylaxis. oob to chair Wounds- none Nutrition- reg diet DVT prophylaxis: heparin sq GI prophylaxis: h2b Central Line: right ij 2/5 Arterial Line: no Baer Cathetor: yes Disposition: Patient requires Critical Care/ICU for shock and bacteremia Patient Clinical Status: stable Code Status: full code Miguel A Seymour MD Md Urologist (Electronically Signed)
[2018-03-20] MEDS ORDERED: Furosemide IV* 10 MG/ML 2 ML VIAL (20 MG) IV ONE (21:05)
[2018-03-20] MEDS ORDERED: Ibuprofen TAB* 800 MG PO ONE (21:38)
[2018-03-20 22:21] LABS: ABS Basophils 0 10^3/ul (0-0.2); ABS Eosinophils 0 10^3/ul (0-0.6); ABS Lymphocytes 0.4 10^3/ul (1.0-4.8); ABS Monocytes 0.1 10^3/ul (0-0.8); ABS Nucleated RBC 0 10^3/ul; Eosinophil % 0.6 %; Hematocrit 39 % (35-47); Hemoglobin 12.7 g/dl (12.0-16.0); Lymphocyte % 7.4 %; Mean Corpuscular HGB Conc 33 g/dl (31-36); Mean Corpuscular Hemoglobin 29 pg (27-31); Mean Corpuscular Volume 87 fL (80-97); Mean Platelet Volume 8.6 fL (7.4-10.4); Nucleated Red Blood Cells % 0; Platelet Count 192 10^3/ul (150-450); Red Blood Count 4.45 10^6/ul (4.00-5.40); Red Cell Distribution Width 15 % (10.5-15); White Blood Count 5.6 10^3/ul (3.5-10.8)
[2018-03-20] MEDS ORDERED: Iohexol 350* (CONTRAST) 500 ML MDV IV ONE (22:23)
[2018-03-20 22:37] LABS: Albumin 3.1 g/dL (3.2-5.2); Albumin/Globulin Ratio 1.1 (1-3); BUN/Creatinine Ratio 16.7 (8-20); Calcium 8.2 mg/dL (8.6-10.3); EGFR African American 89.7 (>60); EGFR Non-African American 74.1 (>60); Globulin 2.9 g/dL (2-4); Potassium 3.7 mmol/L (3.5-5.0); Total Bilirubin 0.3 mg/dL (0.2-1.0)
[2018-03-21] MEDS: Norepinephrine VIAL* 4 MG in NS 0.9% 250 ML* 246 ML IV SCH ×4 (00:19→23:33)
[2018-03-21] MEDS: Acetaminophen TAB* 325 MG PO PRN ×4 (00:31→22:30)
--- NOTE | 2018-03-21 03:54 | PN ---
Hospitalist Progress Note Date of Service: 03/21/18 Earlier in the evening- patient developed fever, tachypnea, and was requiring oxygen. On exam, had crackles so ordered lasix 20mg IV, additional CXR was also ordered. Later, patient remained tachypneic, and requiring 5 liters of oxygen, CTA ordered to rule out PE. CTA shows pleural effusion, and volume overload status. After getting lasix 20mg IV, patient did have increase in urinary output, but became hypotensive and started to require levophed drip. Blood culture sent. will continue to monitor. Prior urine culture and blood culture are positive with E.Coli, sensitivities are pending.
[2018-03-21 05:50] LABS: Hematocrit 35 % (35-47); Hemoglobin 11.5 g/dl (12.0-16.0); Mean Corpuscular HGB Conc 33 g/dl (31-36); Mean Corpuscular Hemoglobin 29 pg (27-31); Mean Corpuscular Volume 87 fL (80-97); Mean Platelet Volume 8.9 fL (7.4-10.4); Platelet Count 201 10^3/ul (150-450); Red Blood Count 4.05 10^6/ul (4.00-5.40); Red Cell Distribution Width 15 % (10.5-15)
[2018-03-21 06:10] LABS: BUN/Creatinine Ratio 14.5 (8-20); Calcium 8.1 mg/dL (8.6-10.3); EGFR African American 92.4 (>60); EGFR Non-African American 76.4 (>60); Potassium 3.7 mmol/L (3.5-5.0)
[2018-03-21] MEDS: Heparin VIAL(*) 5000 UNITS/ML VIAL (FIVE THOUSAND) SUBCUT SCH ×3 (06:32→22:11)
[2018-03-21] MEDS: Famotidine TAB* 20 MG PO SCH (08:09)
[2018-03-21] MEDS: cefTRIAXone(*) 1 GM in NS 0.9% 50 ML* 50 ML IVPB SCH (08:10)
[2018-03-21] MEDS ORDERED: Meropenem 500MG PREMIX(*) 500 MG/50 ML BAG IV SCH (09:00)
[2018-03-21] MEDS ORDERED: Potassium Chlor TAB* 20 MEQ TAB.ER PO ONE (12:38)
--- NOTE | 2018-03-21 12:40 | PN ---
Progress Note - Progress Note Date of Service: 03/21/18 Note: Progress Note -- Critical Care 24 hour events -became febrile to 105, tachycardic, tachypneic, increased wob, oxygen 2 L -CT abd/pevlis/chest done -back on levophed -making urine -given lasix last night for possible fluid overload -now awake, alert, no distress, on RA now. afebrile this morning now -denies cough/sob/cp/sputum production. no abd pain/n/v. Tele: NSR Vitals: Vital Signs Temp 99.3 F 03/21/18 12:15 Pulse 62 03/21/18 12:15 Resp 25 03/21/18 12:15 BP 93/61 03/21/18 12:15 Pulse Ox 94 03/21/18 12:15 Intake & Output 03/20/18 03/21/18 03/21/18 18:59 06:59 18:59 Intake Total 1836 909.4 120 Output Total 60 1727 240 Balance 1776 -817.6 -120 Weight 64.2 kg Intake: IV Fluids 860 NS (0.9%) 860 Medicated IV 16 69.4 norepinephrine 16 69.4 Oral 960 840 120 Output: Kimbrough 60 1727 240 Other: Date of Last Bowel 03/21/18 Movement # Bowel Movements 1 O2/Vent: RA Infusions: levophed 5 Current Medications: Acetaminophen (Tylenol Tab*) 650 mg PO Q4H PRN PRN Reason: FEVER/PAIN Last Admin: 03/21/18 04:59 Dose: 650 mg Al Hydrox/Mg Hydrox/Simethicone (Maalox Plus*) 30 ml PO Q6H PRN PRN Reason: INDIGESTION Calcium Carbonate (Tums*) 500 mg PO Q4H PRN PRN Reason: DYSPEPSIA Last Admin: 03/19/18 11:20 Dose: 500 mg Famotidine (Pepcid Tab*) 20 mg PO BID [facility] Last Admin: 03/21/18 08:09 Dose: 20 mg Heparin Sodium (Porcine) (Heparin Vial(*)) 5,000 units SUBCUT Q8HR [facility] Last Admin: 03/21/18 06:32 Dose: 5,000 units Norepinephrine Bitartrate 4 mg (/ Sodium Chloride) 250 mls @ 56.25 mls/hr IV Q24H [facility]; Protocol Last Admin: 03/21/18 11:24 Dose: 11.3 mls/hr Ceftriaxone Sodium 1 gm/ (Sodium Chloride) 50 mls @ 200 mls/hr IVPB Q24HR [facility] Ondansetron HCl (Zofran Inj*) 4 mg IV Q4H PRN PRN Reason: NAUSEA/VOMITING Physical Exam: General: awake, alert, no distress, no diaphoresis Head: normocephalic, atraumatic HEENT: no pallor, no icterus, moist mucous membranes Neck: soft, supple CVS: normal rate, regular, no murmur Resp: bilateral air entry, some diminished bibasilar breath sounds, no wheeze, no rhonchi Abdomen: soft, nontender, nondistended, bowel sounds+ Ext: pulses+, warm, no edema Skin: intact Neuro: awake, alert, orientedx3, moving all extremities Labs: Laboratory Results - last 24 hr 03/20/18 03/20/18 03/20/18 22:05 22:05 22:05 WBC 5.6 RBC 4.45 Hgb 12.7 Hct 39 MCV 87 MCH 29 MCHC 33 RDW 15 Plt Count 192 MPV 8.6 Neut % (Auto) 90.5 Lymph % (Auto) 7.4 Florence % (Auto) 1.1 Eos % (Auto) 0.6 Baso % (Auto) 0.4 Absolute Neuts (auto) 5.0 Absolute Lymphs (auto) 0.4 L Absolute Monos (auto) 0.1 Absolute Eos (auto) 0 Absolute Basos (auto) 0 Absolute Nucleated RBC 0 Nucleated RBC % 0 Sodium 136 Potassium 3.7 Chloride 106 Carbon Dioxide 23 Anion Gap 7 BUN 13 Creatinine 0.78 Est GFR ( Amer) 89.7 Est GFR (Non-Af Amer) 74.1 BUN/Creatinine Ratio 16.7 Glucose 117 H Lactic Acid 2.1 H* Calcium 8.2 L Total Bilirubin 0.30 AST 37 ALT 57 H Alkaline Phosphatase 107 H Total Protein 6.0 L Albumin 3.1 L Globulin 2.9 Albumin/Globulin Ratio 1.1 03/21/18 03/21/18 05:10 05:10 WBC 12.0 H RBC 4.05 Hgb 11.5 L Hct 35 MCV 87 MCH 29 MCHC 33 RDW 15 Plt Count 201 MPV 8.9 Neut % (Auto) Lymph % (Auto) Florence % (Auto) Eos % (Auto) Baso % (Auto) Absolute Neuts (auto) Absolute Lymphs (auto) Absolute Monos (auto) Absolute Eos (auto) Absolute Basos (auto) Absolute Nucleated RBC Nucleated RBC % Sodium 137 Potassium 3.7 Chloride 108 Carbon Dioxide 24 Anion Gap 5 BUN 11 Creatinine 0.76 Est GFR ( Amer) 92.4 Est GFR (Non-Af Amer) 76.4 BUN/Creatinine Ratio 14.5 Glucose 108 H Lactic Acid Calcium 8.1 L Total Bilirubin AST ALT Alkaline Phosphatase Total Protein Albumin Globulin Albumin/Globulin Ratio Imaging: cxr 03/19 - no infiltrate CT chest 03/19 - segmental atelectasis; periportal edema+, upper left kidney small cyst; reviewed report Us abd 03/19 - no obstruction/hydro noted ct chest/abd/pelvis 03/20 - no PE, large pleural effusions with some atelectasis+ bilateral; nonspecific ascites, renal cysts+, leiomyomatour uterus+ Assessment: 67y F with no sig pmhx; recent trip to [facility] and returned 2 weeks back. COmes to ER for eval of fever. Fever started 1 week prior, no URI symptoms, no sob/cough/cp, no abd pain/n/v, no back pain. Some dec appetite+. WEnt to PCP and started on tamiflu for possible influenza. COmpelted course but no improvement, still having fevers at home. Comes to ER, febrile 105, tachycardic, normotensive but then became hypotensive to 60s. Started on IV abx , sepsis protocol and IV pressors for hypotension. -Severe Sepsis with Shock -E.Coli bacteremia/UTI -BEULAH -bilateral pleural effusions Plan: Neuro- stable, delirium prec. CVS- septic shock; back on levophed. hold further IVF. allow po intake. will need Lasix once more stable to slowly diurese. warm ext. making urine. off IVF. cont IV abx. Maintain MAP >=65. Resp- RA, no distress. Noted CT chest with bilateral effusions, likely with compressive atelectasis. discussed with patient. no distress now. Bronchodilators PRN. No plan for thoracentesis, but did discuss with pateint, will allow some diuresis first. no further IVF. Does not appear to be pneumonia , no clinical symptoms, distress may have been metabolic response 2/2 to fever more so. ID- tmax 105. WBC 12. Urinalysis+, Urine cx with E.coli. Blood cx E.coli. Sensitive to CTX. Repeat Blood cx last night, pending. -CT chest/abd/pelvis; no hydro noted. B/L effusions. Likely compressive atelectasis, low clinical suspicion for PNA. -Remains on pressors -Cont Ceftriaxone IV (day#3). No plan to change IV abx, unless more unstable, discussed with patient. GI- regular diet. GI proph. Renal- Cr okay. K 3.7, replete PO 40meq x1. No acidosis. Good urine output. off IVF. Bilaterla pleural effusions, plan to start lasix low dose at some point. re -eval keyur later today. Heme- hg 10-11, stable. Plt okay. Endo- fingerstick prn Musculsk- pressure ulcer prophylaxis. oob to chair Wounds- none Nutrition- reg diet DVT prophylaxis: heparin sq GI prophylaxis: h2b Central Line: right ij 2/5 Arterial Line: no Kimbrough Cathetor: yes Disposition: Patient requires Critical Care/ICU for shock and bacteremia Patient Clinical Status: stable Code Status: full code Total Critical Care time is 35 min, excluding teaching and procedures Miguel A Seymour MD [employer] Agent (Electronically Signed)
[2018-03-21] MEDS ORDERED: Furosemide TAB* 20 MG PO ONE (17:28)
[2018-03-22] MEDS: Acetaminophen TAB* 325 MG PO PRN (04:19)
[2018-03-22] MEDS ORDERED: Ibuprofen TAB* 400 MG PO ONE (04:59)
[2018-03-22] MEDS: Heparin VIAL(*) 5000 UNITS/ML VIAL (FIVE THOUSAND) SUBCUT SCH ×3 (05:25→21:57)
[2018-03-22 05:28] LABS: Hematocrit 35 % (35-47); Hemoglobin 11.7 g/dl (12.0-16.0); Mean Corpuscular HGB Conc 34 g/dl (31-36); Mean Corpuscular Hemoglobin 29 pg (27-31); Mean Corpuscular Volume 86 fL (80-97); Mean Platelet Volume 8.1 fL (7.4-10.4); Platelet Count 193 10^3/ul (150-450); Red Blood Count 4.02 10^6/ul (4.00-5.40); Red Cell Distribution Width 15 % (10.5-15); White Blood Count 6.6 10^3/ul (3.5-10.8)
[2018-03-22 05:43] LABS: BUN/Creatinine Ratio 14.7 (8-20); Calcium 8.4 mg/dL (8.6-10.3); EGFR African American 93.8 (>60); EGFR Non-African American 77.6 (>60); Potassium 3.7 mmol/L (3.5-5.0)
[2018-03-22] MEDS: Famotidine TAB* 20 MG PO SCH (08:05)
[2018-03-22] MEDS: cefTRIAXone* 1 GM in NS 0.9% 50 ML BAG IVPB SCH (08:05)
[2018-03-22] MEDS ORDERED: Potassium Chlor TAB* 20 MEQ TAB.ER PO ONE ×2 (08:52→20:00)
[2018-03-22] MEDS ORDERED: Norepinephrine 16MCG/ML IVPRE* 4,000 MCG/250 ML BAG IV SCH (15:06)
[2018-03-22] MEDS ORDERED: Furosemide TAB* 20 MG PO ONE (16:14)
--- NOTE | 2018-03-22 16:19 | PN ---
Progress Note - Progress Note Date of Service: 03/22/18 Note: Progress Note -- Critical Care 24 hour events -febrile 102.6 overnight -off pressors now, BP 80-90s -asymptomatic, no resp distress -on 2 L NC -good urine output post 20mg lasix po Tele: NSR Vitals: Vital Signs Temp 99.1 F 03/22/18 16:30 Pulse 64 03/22/18 16:30 Resp 20 03/22/18 16:30 BP 91/61 03/22/18 16:30 Pulse Ox 97 03/22/18 16:30 Intake & Output 03/21/18 03/22/18 03/22/18 18:59 06:59 18:59 Intake Total 1295 250 720 Output Total 855 1875 550 Balance 440 -1625 170 Weight 64.042 kg Intake: IV Fluids 135 ABX - CEFTRIAXONE 50 NS (0.9%) 85 Medicated IV 120 norepinephrine 120 Oral 1040 250 720 Output: Baer 855 1875 550 Other: Date of Last Bowel 03/21/18 Movement # Bowel Movements 1 O2/Vent: 2 L NC Infusions: levophed off Current Medications: Acetaminophen (Tylenol Tab*) 650 mg PO Q4H PRN PRN Reason: FEVER/PAIN Last Admin: 03/22/18 04:19 Dose: 650 mg Al Hydrox/Mg Hydrox/Simethicone (Maalox Plus*) 30 ml PO Q6H PRN PRN Reason: INDIGESTION Calcium Carbonate (Tums*) 500 mg PO Q4H PRN PRN Reason: DYSPEPSIA Last Admin: 03/19/18 11:20 Dose: 500 mg Famotidine (Pepcid Tab*) 20 mg PO DAILY [facility] Last Admin: 03/22/18 08:05 Dose: 20 mg Heparin Sodium (Porcine) (Heparin Vial(*)) 5,000 units SUBCUT Q8HR [facility] Last Admin: 03/22/18 14:17 Dose: 5,000 units Ceftriaxone Sodium 1 gm/ (Sodium Chloride) 50 mls @ 200 mls/hr IVPB Q24HR [facility] Last Admin: 03/22/18 08:05 Dose: 200 mls/hr Norepinephrine Bitartrate (Levophed 16 Mcg/Ml Premix Bag*) 4,000 mcg in 250 mls @ 56.25 mls/hr IV Q24H [facility]; Protocol Last Admin: 03/22/18 16:46 Dose: Not Given Ondansetron HCl (Zofran Inj*) 4 mg IV Q4H PRN PRN Reason: NAUSEA/VOMITING Potassium Chloride (Klor Con Er Tab*) 40 meq PO UC ONCE ONE Stop: 03/22/18 20:01 Physical Exam: General: awake, alert, no distress, no diaphoresis Head: normocephalic, atraumatic HEENT: no pallor, no icterus, moist mucous membranes Neck: soft, supple CVS: normal rate, regular, no murmur Resp: bilateral air entry, some diminished bibasilar breath sounds, no wheeze, no rhonchi Abdomen: soft, nontender, nondistended, bowel sounds+ Ext: pulses+, warm, no edema Skin: intact Neuro: awake, alert, orientedx3, moving all extremities Labs: Laboratory Results - last 24 hr 03/22/18 03/22/18 05:20 05:20 WBC 6.6 RBC 4.02 Hgb 11.7 L Hct 35 MCV 86 MCH 29 MCHC 34 RDW 15 Plt Count 193 MPV 8.1 Sodium 137 Potassium 3.7 Chloride 103 Carbon Dioxide 25 Anion Gap 9 BUN 11 Creatinine 0.75 Est GFR ( Amer) 93.8 Est GFR (Non-Af Amer) 77.6 BUN/Creatinine Ratio 14.7 Glucose 91 Calcium 8.4 L Imaging: cxr 2/5 - no infiltrate CT chest 2 - segmental atelectasis; periportal edema+, upper left kidney small cyst; reviewed report Us abd 2 - no obstruction/hydro noted ct chest/abd/pelvis 2 - no PE, large pleural effusions with some atelectasis+ bilateral; nonspecific ascites, renal cysts+, leiomyomatour uterus+ Assessment: 67y F with no sig pmhx; recent trip to [place] and returned 2 weeks back. COmes to ER for eval of fever. Fever started 1 week prior, no URI symptoms, no sob/cough/cp, no abd pain/n/v, no back pain. Some dec appetite+. WEnt to PCP and started on tamiflu for possible influenza. COmpelted course but no improvement, still having fevers at home. Comes to ER, febrile 105, tachycardic, normotensive but then became hypotensive to 60s. Started on IV abx , sepsis protocol and IV pressors for hypotension. -Severe Sepsis with Shock -E.Coli bacteremia/UTI -BEULAH -bilateral pleural effusions Plan: Neuro- stable, delirium prec. CVS- septic shock, improved, back to baseline BP 90s. off IVF. dose lasix 20mg PO daily for gentle diuresis for volume removal. warm ext. making urine. cont IV abx. Maintain MAP >=65. Resp- NC, no distress. -Noted CT chest with bilateral effusions, likely with compressive atelectasis. discussed with patient. -Bronchodilators PRN. No plan for thoracentesis, but did discuss with pateint, will allow some diuresis first. Does not appear to be pneumonia, no clinical symptoms, distress may have been metabolic response 2/2 to fever more so. ID- -tmax 102, now 99s. WBC 6. Urinalysis+, Urine cx with E.coli. Blood cx E.coli. Sensitive to CTX. Repeat Blood cx 2/6 pending. -CT chest/abd/pelvis; no hydro noted. B/L effusions. Likely compressive atelectasis, low clinical suspicion for PNA. -Remains on pressors -Cont Ceftriaxone IV (day#4). GI- regular diet. GI proph. Renal- Cr okay. K 3.7, replete PO 40meq x2. No acidosis. Good urine output. off IVF. Repeat lasix 20mg po x1 today. LE 2+ edema++ -Bilaterla pleural effusions -d/c baer Heme- hg 10-11, stable. Plt okay. Endo- fingerstick prn Musculsk- pressure ulcer prophylaxis. oob to chair, pt/ot, ambulate Wounds- none Nutrition- reg diet DVT prophylaxis: heparin sq GI prophylaxis: h2b Central Line: right ij 2/5 Arterial Line: no Baer Cathetor: yes, d/c today Disposition: hemodyn improved; can be transferred to monitored bed Patient Clinical Status: stable Code Status: full code Miguel A Seymour MD Program Mgr (Electronically Signed)
[2018-03-23] MEDS: Heparin VIAL(*) 5000 UNITS/ML VIAL (FIVE THOUSAND) SUBCUT SCH (05:34)
[2018-03-23 05:51] LABS: Hematocrit 35 % (35-47); Hemoglobin 11.7 g/dl (12.0-16.0); Mean Corpuscular HGB Conc 34 g/dl (31-36); Mean Corpuscular Hemoglobin 29 pg (27-31); Mean Corpuscular Volume 87 fL (80-97); Mean Platelet Volume 8.1 fL (7.4-10.4); Platelet Count 233 10^3/ul (150-450); Red Blood Count 4.05 10^6/ul (4.00-5.40); Red Cell Distribution Width 15 % (10.5-15); White Blood Count 8.8 10^3/ul (3.5-10.8)
[2018-03-23 06:01] LABS: BUN/Creatinine Ratio 15.6 (8-20); Calcium 8.8 mg/dL (8.6-10.3); EGFR Non-African American 75.2 (>60); Potassium 3.7 mmol/L (3.5-5.0)
[2018-03-23] MEDS: Famotidine TAB* 20 MG PO SCH (09:53)
[2018-03-23] MEDS: cefTRIAXone* 1 GM in NS 0.9% 50 ML BAG IVPB SCH (09:53)
[2018-03-23 10:17] VITALS: BP 104/64
--- NOTE | 2018-03-23 14:06 | DS ---
AMENDED REPORT NOW INCLUDES DATE OF DISCHARGE CC: Dr. Whitney Santos; Dr. Miguel A Seymour; Dr. Luz Muller; Dr. Carol Salinas * DISCHARGE SUMMARY: DATE OF ADMISSION: 03/19/18 DATE OF DISCHARGE: 03/23/18 DISCHARGE DIAGNOSES: Are as follows: 1. Severe septic shock due to E. coli urinary tract infection, septic shock resolved. 2. Acute kidney injury, resolved, likely due to above. 3. Bilateral pleural effusion and bilateral lower extremity edema, iatrogenic, likely due to aggressive fluid resuscitation due to above. DISCHARGE MEDICATIONS: Are as follows: 1. Cefpodoxime 200 mg p.o. q.12 for 5 more days, completed 10-day treatment therapy. 2. Famotidine 20 mg tab p.o. daily for 20 days. 3. Lasix 20 mg p.o. daily for 3 days, then stop. 4. Floranex 2 tabs p.o. daily for 8 days, then stop. HISTORY OF PRESENT ILLNESS/HOSPITAL COURSE: The patient is a 67-year-old lady with no documented past medical history who is active, especially with [facility], who presented with fevers, rigors, and altered mental status on 03/19/18. She was found to have a T-max of 102 and mentioned that she had recently gotten back from [facility]. She mentions that she was started on Tamiflu by her PCP on 03/14/18 without any relief of her symptoms and hence, her presentation. She was then diagnosed with sepsis, likely secondary to UTI, and subsequent culture and data reveals a pansensitive E. coli that has been sensitive to Rocephin, which she has been placed on. She was initially admitted to the ICU given her blood pressures were low at the time of admission requiring aggressive fluid resuscitation and Levophed. She has been off of Levophed; today would be her second day off of Levophed and has been doing well and wants to go home. The patient had been advised to follow up and to call her PCP within 3 days post discharge and to continue her low-salt diet until the swelling of her lower extremity improves and/or resolves. She had been prescribed 3 more days of low- dose p.o. Lasix and she had been advised to see and/or discuss with her PCP if she develops any shortness of breath or if her swelling gets worse. If her symptoms resume or develop new ones or feel unwell for any reason, she had been advised to call her PCP first and if she cannot be entertained by her PCP due to scheduling issues alone, she had been advised to call [facility] if the issue is considered nonemergent. She had been advised to call my office regarding any questions, concerns, or further clarifications regarding her discharge plans and her prescriptions and to take her medications as prescribed. REVIEW OF SYSTEMS: The patient denied any recent headache, dizziness, fevers, chills, nausea, vomiting, chest pain, shortness of breath, increased cough and sputum production, abdominal pain, diarrhea, constipation, pain and/or increased frequency in urination, myalgias, arthralgias, throat pain, or new skin lesions. The rest of the 14-point review of systems are, otherwise, unremarkable. PHYSICAL EXAM: General Appearance: The patient is awake, alert and oriented x3 , not in acute distress. HEENT: Normocephalic, atraumatic. PERRLA. Extraocular muscles intact. Negative for icterus. Moist oral mucosa. Negative throat erythema. Neck is soft, supple with no cervical lymphadenopathy. No JVD. Heart: S1, S2 within normal limits. Regular rate and rhythm. No murmurs, rubs, and gallops. Chest is clear to auscultation bilaterally. Good air entry. No wheezes, rales, or rhonchi. Abdomen is soft, nondistended, nontender. Normoactive bowel sounds 4xq. Extremities: No cyanosis, clubbing with 2+ bilateral lower extremity pitting edema. Psychiatric : No active psychosis, depression, suicidal or homicidal ideation. Skin is warm to touch. TIME SPENT: The total time spent evaluating patient, reviewing pertinent data and appropriate documentation is 40 minutes. [id number]/[id number] #: [id number] [place]
== END 2018-03-23 16:13 | disposition home or self-care (01) | DRG 871 ==
LOC: ED 00:16 → ICU 04:51 → MEDTELE 03-22 18:28
PROVIDERS: ADMIT Pediatrics; ATTEND Student in an Organized Health Care Education/Training Program
PROC: 02HV33Z Insertion of Infusion Device into Superior Vena Cava, Percutaneous Approach (ICD-10-PCS; principal; 2018-03-19)
PROC: 3E033XZ Introduction of Vasopressor into Peripheral Vein, Percutaneous Approach (ICD-10-PCS; 2018-03-19)
PROC: 0T9B70Z Drainage of Bladder with Drainage Device, Via Natural or Artificial Opening (ICD-10-PCS; 2018-03-19)
DX: A41.51 Sepsis due to Escherichia coli [E. coli] (principal); R65.21 Severe sepsis with septic shock; N39.0 Urinary tract infection, site not specified; N17.9 Acute kidney failure, unspecified; E87.2 Acidosis; J90 Pleural effusion, not elsewhere classified; R31.0 Gross hematuria; B96.20 Unspecified Escherichia coli [E. coli] as the cause of diseases classified elsewhere; E87.6 Hypokalemia; R60.0 Localized edema; Z72.89 Other problems related to lifestyle; Z87.891 Personal history of nicotine dependence; R51 Headache
CPT/HCPCS: 36415; 71045; 71260; 71275; 74177; 76770; 80048; 80053; 81003; 81015; 82150; 82533; 83605; 83690; 85025; 85027; 85610; 85730; 86140; 87040; 87077; 87086; 87186; 87205; 87641; 87651; 93005; 99285; A9270-GY; J0171; J0696; J1644; J1720; J1940; J1956; J3370; J3480; Q9967